=== PATIENT | male | born 2000 | race Caucasian/White ===

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

== ENCOUNTER 2025-04-24 16:14 | Emergency (ER) | payer OTHER, SELFPAY ==
[2025-04-24 16:25] VITALS: BP 131/71; PULSE 67; RESP 16; TEMP 36.8; O2SAT 100
--- NOTE | 2025-04-24 17:09 | ED_ITS ---
HPI - Wound/Laceration General Chief Complaint: Wound/Laceration Stated Complaint: Stitches Removal Time Seen by Provider: 04/24/25 17:10 Source: patient Mode of arrival: ambulatory Limitations: no limitations History of Present Illness HPI narrative: 24-year-old male presented for suture removal. Endorses 9 sutures were placed 14 days ago to the right middle finger following a basketball hoop injury. He states he had some drainage and redness last week, he contacted his PCP and was prescribed antibiotics and reports improvement. Related Data Home Medications ?Medication ?Instructions ?Recorded ?Confirmed ?Last Taken ?Type hydroxyzine HCl 50 mg tablet 50 mg PO BID PRN Anxiety 06/21/20 04/24/25 Unknown History paroxetine HCl 30 mg tablet 30 mg PO HS 06/21/20 04/24/25 06/20/20 History prazosin 1 mg capsule 1 mg PO HS PRN Anxiety 06/21/20 04/24/25 Unknown History quetiapine 50 mg tablet 50 mg PO HS 06/21/20 04/24/25 Unknown History Allergies Allergy/AdvReac Type Severity Reaction Status Date / Time No Known Allergies Allergy Unverified 04/24/25 17:00 Review of Systems Review of Systems: CONSTITUTIONAL: Denies body aches, fever, chills, or sweats. EYES: Denies visual changes, redness, or discharge. ENT: Denies rhinorrhea, congestion CARDIOVASCULAR: Denies chest pain, palpitations, or edema. RESPIRATORY: Denies cough or dyspnea. GASTROINTESTINAL: Denies abdominal pain, nausea, vomiting, or diarrhea. SKIN: Reports sutures in right hand MUSCULOSKELETAL: Denies back pain, joint pain, or myalgia. NEUROLOGIC: Denies headache, numbness, tingling, or weakness. [facility] Past Medical History Medical History (Updated 04/24/25 @ 17:14 by Judy Gamboa, LEANNA) Patient denies significant medical history Social History Social History (Updated 06/22/20 @ 01:12 by Earl Woo, DO) Smoking status: Never smoker Gender identity (if verbalized by the patient): Male Comments At time of signature, I have reviewed and agree with nursing past medical, surgical, social and family history unless otherwise noted. Please see nursing chart for further information. There is no relevant family history pertinent to the presenting complaint Exam Narrative: GENERAL: Well-appearing EYES: conjunctivae clear, and EOMI. ENT: Mucous membranes moist. NECK: Supple. CHEST: Clear to auscultation. HEART: Regular rate and rhythm. SKIN: Warm, dry. right hand 3rd digit palmar aspect with healing laceration and #[address] center of wound with unapproximated area 0.5cm, no erythema or purulent drainage noted. CMS intact NEURO: Alert and oriented x3. Course Course Emergency Course: Patient is aware of diagnosis, understands and agrees to treatment plan. Anticipatory guidance given. Patient agrees to follow-up as directed and is aware of reasons to seek care at the emergency department. Portions of this record may have been created with voice recognition software Level of Care: Express Care Visit Vital Signs Vital signs: Vital Signs Temperature 98.3 F 04/24/25 16:25 Pulse Rate 67 04/24/25 16:25 Respiratory Rate 16 04/24/25 16:25 Blood Pressure 131/71 04/24/25 16:25 Pulse Oximetry 100 04/24/25 16:25 Oxygen Delivery Room Air 04/24/25 16:25 Temperature 98.3 F 04/24/25 16:25 Pulse Rate 67 04/24/25 16:25 Respiratory Rate 16 04/24/25 16:25 Blood Pressure 131/71 04/24/25 16:25 Pulse Oximetry 100 04/24/25 16:25 Oxygen Delivery Room Air 04/24/25 16:25 Reviewed Procedures Other Procedure Procedure 1: Other Procedure: #8sutures removed from right 3rd digit. center of wound has approx 1cm area unapproximated, no drainage. Steri strips applied to the site. Discussed physical exam findings. Advised supportive measures and signs/symptoms to go to the ER. Pt is appropriate for outpt treatment and f/u. MDM - Wound/Laceration MDM Narrative Medical decision making narrative: Discussed physical exam findings. Tolerated suture removal, Pt had reported #9sutures, only #8 were found. steri strips applied to the unapproximated area of wound. Metal finger splint applied. Advised supportive measures and signs/symptoms to go to the ER. Pt is appropriate for outpt treatment and f/u. Differential Diagnosis Differential diagnosis: Likely other ( encounter for suture removal) Discharge Plan Discharge Clinical Impression: Encounter for removal of sutures Patient Disposition: Home Condition: Stable Instructions: Antibiotic Form, Wound Infection (ED) Additional Instructions: Keep the area clean and dry - cleanse with warm water and mild soap and allow to fully dry. Keep it open to air (no bandages unless at risk for infection) continue the antibiotic as prescribed previously Tylenol as needed for pain Watch for worsening symptoms including pain, redness, swelling, streaking, pus/drainage, fever. Go to the ER with any of these symptoms or concerns. Follow up with primary care provider in 1 week as needed. Patient Language: Malagasy Prescriptions: No Action prazosin 1 mg capsule 1 mg PO HS PRN (Reason: Anxiety) hydroxyzine HCl 50 mg tablet 50 mg PO BID PRN (Reason: Anxiety) paroxetine HCl 30 mg tablet 30 mg PO HS quetiapine 50 mg tablet 50 mg PO HS Follow-up/Referrals: PATRICK,LEANNA LIAO [Primary Care Provider] - Time of Disposition: 17:48
== END 2025-04-24 17:54 | disposition home or self-care (01) ==
PROVIDERS: Emergency Provider Nurse Practitioner Family; PCP Nurse Practitioner Family
DX: S61.212D Laceration without foreign body of right middle finger without damage to nail, subsequent encounter (principal); X58.XXXD Exposure to other specified factors, subsequent encounter
CPT/HCPCS: 99211; G0463